=== PATIENT | male | born 1975 | race Caucasian/White ===

== ENCOUNTER 2021-08-28 21:03 | Outpatient (REF) | payer MEDICARE, SELFPAY ==
[2021-08-28 21:37] LABS: HCT 25.1 % (40.0-50.0); HGB 7.8 g/dL (13.5-17.5); MCHC 31.1 % (32.0-36.0); MPV 10.1 fL (8.0-11.0); Platelet Count 477 10^3/uL (130-400); RBC 2.79 10^6/uL (4.36-5.78); RDW 15.5 % (11.8-14.1); RDW-SD 51.4 fL; WBC 13.34 10^3/uL (4.4-10.8)
[2021-08-28 21:52] LABS: ALT 17 U/L (16-63); AST 15 U/L (15-37); Albumin 2.7 g/dL (3.4-5.0); Alkaline Phosphatase 140 U/L (46-116); Anion Gap 6.6 mmol/L (3-11); BUN 7 mg/dL (7-18); Bilirubin, Total 0.3 mg/dL (0.2-1.0); CO2 29.4 mmol/L (21.0-32.0); CREATININE 0.5 mg/dL (0.70-1.30); Calcium 8.8 mg/dL (8.5-10.1); Chloride 99 mmol/L (98-107); Glucose 190 mg/dL (74-106); Potassium 4.5 mmol/L (3.5-5.1); Sodium 135 mmol/L (136-145); Total Protein 6.8 g/dL (6.4-8.2)
[2021-08-28 21:58] LABS: Hemoglobin A1C 9.7 % (<5.7); Lipase 6 U/L (73-393)
== END 2021-08-28 21:04 | disposition home or self-care (01) ==
LOC: NCHCN 21:03
PROVIDERS: Visit Provider Physician Assistant
DX: K86.1 Other chronic pancreatitis (principal); E11.9 Type 2 diabetes mellitus without complications; I10 Essential (primary) hypertension
CPT/HCPCS: 80053; 83690; 85027; 83036

== ENCOUNTER 2023-05-13 17:24 | Outpatient (REF) | payer MEDICARE, SELFPAY ==
[2023-05-13 20:53] LABS: HCT 44.8 % (40.0-50.0); HGB 15.7 g/dL (13.5-17.5); MCH 30.3 pg (27.0-33.0); MCV 87 fL (80-95); MPV 9.9 fL (8.0-11.0); Platelet Count 359 10^3/uL (130-400); RBC 5.18 10^6/uL (4.36-5.78); RDW 12.4 % (11.8-14.1); RDW-SD 39.8 fL; WBC 11.37 10^3/uL (4.4-10.8)
[2023-05-13 21:16] LABS: Hemoglobin A1C 7.4 % (<5.7)
[2023-05-13 21:24] LABS: ALT 30 U/L (16-63); AST 33 U/L (15-37); Albumin 4.4 g/dL (3.4-5.0); Alkaline Phosphatase 137 U/L (46-116); Anion Gap 11.2 mmol/L (3-11); BUN 4 mg/dL (7-18); CO2 26.8 mmol/L (21.0-32.0); CREATININE 0.6 mg/dL (0.70-1.30); Calcium 9.6 mg/dL (8.5-10.1); Calculated LDL 38 mg/dL (<100); Chloride 97 mmol/L (98-107); Cholesterol 163 mg/dL (<200); Estimated GFR 119.07 (mL/min/1.73m2); Glucose 200 mg/dL (74-106); HDL Cholesterol 77 mg/dL (40-60); Potassium 4.6 mmol/L (3.5-5.1); Sodium 135 mmol/L (136-145); Total Protein 8.1 g/dL (6.4-8.2); Triglyceride 241 mg/dL (<150)
[2023-05-13 21:34] LABS: Lipase 12 U/L (16-77)
[2023-05-13 21:40] LABS: COMMENT (LAB VIEW ONLY) 25.42 mg/dL; Microalb ug/mg Crea 26.8 ug/mg Cr
== END 2023-05-13 17:25 | disposition home or self-care (01) ==
LOC: NCHCN 17:24
PROVIDERS: Visit Provider Physician Assistant
DX: K86.1 Other chronic pancreatitis (principal); E11.9 Type 2 diabetes mellitus without complications; I10 Essential (primary) hypertension; F90.9 Attention-deficit hyperactivity disorder, unspecified type
CPT/HCPCS: 80053; 80061; 83690; 85027; 82043; 82570; 83036